=== PATIENT | male | born 1990 | race Caucasian/White ===

== ENCOUNTER → 2020-12-02 | Outpatient (CLI) | payer SELFPAY | LOC: M LABSMTC 14:01 | PROVIDERS: ATTEND Pediatrics | DX: Z20.822 Contact with and (suspected) exposure to COVID-19 (principal) ==

== ENCOUNTER 2022-11-22 09:33 | Emergency (ER) | payer BC, OTHER ==
[~2022-11-22] VITALS: Ht 180.3 cm; Wt 61.4 kg
[2022-11-22 12:46] VITALS: BP 116/72
== END 2022-11-22 12:50 | disposition home or self-care (01) ==
LOC: M ED 09:33
DX: J93.11 Primary spontaneous pneumothorax (principal); F17.290 Nicotine dependence, other tobacco product, uncomplicated; F12.10 Cannabis abuse, uncomplicated

== ENCOUNTER → 2022-11-23 | Outpatient (CLI) | payer BC, OTHER | LOC: M RAD 10:42 | PROVIDERS: ATTEND Emergency Medicine | DX: J93.83 Other pneumothorax (principal) ==

== ENCOUNTER → 2022-11-26 | Outpatient (CLI) | payer BC, OTHER | LOC: M PLAIMG 08:55 | PROVIDERS: ATTEND Internal Medicine Pulmonary Disease | DX: J93.11 Primary spontaneous pneumothorax (principal) ==

== ENCOUNTER → 2022-12-08 | Outpatient (CLI) | payer BC, OTHER | LOC: M RAD 17:24 | PROVIDERS: ATTEND Internal Medicine Pulmonary Disease | DX: J93.11 Primary spontaneous pneumothorax (principal) ==